=== PATIENT | female | born 1965 | race Caucasian/White ===

== ENCOUNTER → 2016-07-24 | Outpatient (REF) | payer OTHER ==
[~2016-07-24] MED LIST: /ESOM40CA; /FENO14TA PO; /MOXI40TA; /VERA40TA; ACET65TA; ACTO45TA; ADV500INH INH; ADVAIR; ALBUTEROL INHALER INH; AMIT25TA10 PO; APIDINJ2 SC; ASPI325T PO; ATEN25TA; ATEN50TA2 PO; CLAR10CA3 PO; CLAR5CHW; CLARITAN PO; CLOP75TA2 PO; CYANCRY6 PO; DRIS1CAP PO; ECOT325T5; FLUTISP; FURO40TA2; FURO40TA2 PO; GLUC850T; INSULANT; INSULIN 70/30; INSULIN REGULAR SC; ISOS30BRAN; LACH12LO EXT; LANTINJ4 SC; LEVA12INH INH; LIDO5DIS; LIPI80TA PO; LORA10TA2 PO; LOVA1CAP16 PO; LYRI150C PO; META800T82 PO; METF850T PO; MONT10TA2 PO; MUCI600T34 PO; NIASPAN PO; NICO21DI4; NITR0.4D SL; NITR0.4S; PANT40TA2 PO; PARO25TAB; PLAV75TA2; PRED10TA2; PREG100CA; PRIL40CA PO; PROV90AE; SING10TA31 PO; SING5CHW PO; SPIRIVA INH; SUCR1SUS PO; TRIC145T19; VICO5TAB; VITA500046 PO; VOLT1GEL2 TD; VYTO10TA5; XOPE1.252; ZANT150T; ZETI10TA21 PO; [UNRECOGNIZED DRUG - CODE] PO; niaspan PO
[2016-07-24 13:44] LABS: BASO % 0.4 % (0.0-1.0); EOS # 0.2 K/mm3 (0.0-0.50); EOS % 1.9 % (0.0-3.0); LARGE UNSTAINED CELL # 0.3 K/mm3 (0.0-0.4); LYMPH # 2.8 K/mm3 (1.5-4.5); LYMPH % 32.7 % (24.0-44.0); MEAN CORPUSCULAR HEMOGLOBIN 28.9 pg (27.0-33.0); MEAN CORPUSCULAR HGB CONC 32.5 g/dl (32.0-36.5); MEAN CORPUSCULAR VOLUME 88.8 fl (80.0-96.0); MONO # 0.5 K/mm3 (0.0-0.8); MONO % 6.3 % (0.0-5.0); NEUTROPHILS # 4.8 K/mm3 (1.8-7.7); NEUTROPHILS % 55.7 % (36.0-66.0); PLATELET COUNT, AUTOMATED 349 k/mm3 (150-450); RED CELL DISTRIBUTION WIDTH 12.7 % (11.5-14.5); WHITE BLOOD COUNT 8.6 K/mm3 (4.0-10.0)
[2016-07-24 14:10] LABS: ALBUMIN 3.3 GM/DL (3.2-5.2); ALBUMIN/GLOBULIN RATIO 0.85 (1.00-1.93); ALKALINE PHOSPHATASE 92 U/L (45-117); ALT/SGPT 25 U/L (12-78); ANION GAP 7 MEQ/L (8-16); AST/SGOT 16 U/L (15-37); BILIRUBIN,TOTAL 0.2 MG/DL (0.2-1.0); BLOOD UREA NITROGEN 13 MG/DL (7-18); CARBON DIOXIDE LEVEL 31 MEQ/L (21-32); CHLORIDE LEVEL 99 MEQ/L (98-107); CHOLESTEROL LEVEL 252 MG/DL (<200); CREATININE FOR GFR 0.71 MG/DL (0.55-1.02); FERRITIN 13 NG/ML (8-252); FREE T4 1.01 NG/DL (0.76-1.46); GLOMERULAR FILTRATION RATE > 60.0 (>51); GLUCOSE, FASTING 180 MG/DL (70-105); MAGNESIUM LEVEL 1.9 MG/DL (1.8-2.4); PERCENT SATURATION 13.7 % (13.2-37.4); POTASSIUM SERUM 4.2 MEQ/L (3.5-5.1); SODIUM LEVEL 137 MEQ/L (136-145); TOTAL IRON BINDING CAPACITY 467 UG/DL (250-450); TOTAL PROTEIN 7.2 GM/DL (6.4-8.2); TRIGLYCERIDES LEVEL 248 MG/DL (<150)
[2016-07-24 14:20] LABS: VITAMIN B12 LEVEL 1219 PG/ML (247-911)
== END ==
LOC: M SFHCPLAZ 11:05
PROVIDERS: ATTEND Family Medicine
DX: E53.8 Deficiency of other specified B group vitamins (principal); E78.5 Hyperlipidemia, unspecified

== ENCOUNTER → 2016-11-17 | Outpatient (CLI) | payer OTHER ==
--- NOTE | 2016-11-17 16:02 | REPMRS ---
Patient History The patient states she had a clinical breast exam in 11/29 Family history of prostate cancer in brother at age 50 or over. Digital Woman Screen Mammo: November 17, 2016 - Exam #: [id number] Bilateral CC and MLO view(s) were taken. Technologist: Karolina Griffin, Technologist Prior study comparison: March 15, 2015, digital woman screen mammo performed at [facility] to [facility]. December 24, 2013, digital woman screen mammo performed at [facility] to [facility]. FINDINGS: There are scattered fibroglandular densities. There has been no change in the appearance of the mammogram from the prior studies. There is a mild amount of residual fibroglandular tissue which is fairly symmetric. There is no interval development of dominant mass, architectural distortion, or clustered microcalcification suggestive of malignancy. ASSESSMENT: BI-RADS/ACR category 1 mammogram. Negative. Recommendation Routine screening mammogram in 1 year (for women over age 40). This mammogram was interpreted with the aid of an FDA-approved computer-aided dectection system. Electronically Signed By: Juan Wolf MD 11/17/16 [id number]
== END ==
LOC: M WHC 14:38
PROVIDERS: ATTEND Nurse Practitioner Family
DX: Z12.31 Encounter for screening mammogram for malignant neoplasm of breast (principal)

== ENCOUNTER → 2016-11-17 | Outpatient (REF) | payer OTHER | LOC: M SFHCWAGY 14:36 | PROVIDERS: ATTEND Nurse Practitioner Family | DX: Z12.12 Encounter for screening for malignant neoplasm of rectum (principal) ==

== ENCOUNTER → 2016-12-15 | Outpatient (REF) | payer OTHER ==
[2016-12-15 13:14] LABS: BASO % 0.6 % (0.0-1.0); EOS # 0.2 K/mm3 (0.0-0.50); EOS % 2.1 % (0.0-3.0); LARGE UNSTAINED CELL # 0.1 K/mm3 (0.0-0.4); LARGE UNSTAINED CELL % 1.1 % (0.0-4.0); LYMPH # 3.7 K/mm3 (1.5-4.5); LYMPH % 39.7 % (24.0-44.0); MEAN CORPUSCULAR HEMOGLOBIN 29.7 pg (27.0-33.0); MEAN CORPUSCULAR VOLUME 89.8 fl (80.0-96.0); MONO # 0.4 K/mm3 (0.0-0.8); MONO % 4.4 % (0.0-5.0); NEUTROPHILS # 4.7 K/mm3 (1.8-7.7); PLATELET COUNT, AUTOMATED 303 k/mm3 (150-450); RED CELL DISTRIBUTION WIDTH 13.6 % (11.5-14.5)
[2016-12-15 13:17] LABS: THYROID PEROXIDASE ANTIBODY < 28.0 U/ML (<60.0)
[2016-12-15 13:24] LABS: CHOLESTEROL LEVEL 111 MG/DL (<200); FERRITIN 27 NG/ML (8-252); FREE T4 1.09 NG/DL (0.76-1.46); PERCENT SATURATION 18.4 % (13.2-37.4); TOTAL IRON BINDING CAPACITY 414 UG/DL (250-450); TRIGLYCERIDES LEVEL 158 MG/DL (<150)
[2016-12-15 14:56] LABS: MICROSCOPIC INDICATED? MAN YES (NO)
[2016-12-15 15:17] LABS: RBC, URINE NONE SEEN /hpf (0-3); SQUAMOUS EPITHELIAL CELL URINE MOD AMOUNT /hpf (SMALL AMT)
[2016-12-15 15:18] LABS: BACTERIA, URINE MOD AMOUNT; CALCIUM OXALATE CRYSTALS,URINE MOD AMOUNT /hpf; MICROSCOPIC EXAM PERFORMED
[2016-12-15 22:13] LABS: HYALINE CAST, URINE NONE SEEN /lpf (0-1)
== END ==
LOC: M SFHCPLAZ 10:04
PROVIDERS: ATTEND Family Medicine
DX: D50.9 Iron deficiency anemia, unspecified (principal); E03.9 Hypothyroidism, unspecified; E11.8 Type 2 diabetes mellitus with unspecified complications

== ENCOUNTER → 2017-01-30 | Outpatient (CLI) | payer OTHER ==
--- NOTE | 2017-01-30 23:55 | ECWPNPC ---
PATIENT NAME: LEOLA PAN : 1965 GENDER: FEMALE VISIT DATE: 01/30/2017 DISCHARGE DATE: 01/30/17 1300 VISIT LOCKED DATE TIME: PHYSICIAN: ESTEFANY SORENSON PHYSICIAN PAGER NO: [phone] RESOURCE: ESTEFANY SORENSON REASON FOR APPOINTMENT 1. LUMBAR HISTORY OF PRESENT ILLNESS NEW PATIENT CONSULT: 51 Y/O FEMALE REFERRED BY JESSICA JACKSON,[facility] FOR EVALUATION OF CHRONIC LBP.THIS BEGAN TWO YEARS AGO WITH NO PARTICULAR INJURY.DESCRIBES PAIN CONSTANT ACHING AND SHARP PAIN.PAIN IS AGGREVATED BY WALKING,SITTING OR STANDING.PAIN IS RELIEVED SOMEWHAT WITH LYING DOWN.RATING PAIN VAS 8/10.PAIN IS LOCATED ACROSS LOW BACK WITH RADIATION INTO LEGS.SUFFERS WITH DIABETIC NEUROPATHY AND HAS MULTIPLE COMORBID CONDITIONS.DENIES RECENT FEVER,ILLNESS OR SUDDEN WEIGHT LOSS.DENIES BOWEL OR BLADDER INCONTINENCE.REPORTING FREQUENT EPISODES OF DIARHEA PAST FEW MONTHS. WHEN DID YOUR PAIN FIRST START? . BRIEFLY DESCRIBE HOW YOUR PAIN STARTED? . HOW DOES YOUR PAIN CHANGE WITH TIME? . DOES YOUR PAIN AWAKEN YOU FROM SLEEP? . HOW MANY HOURS OF SLEEP DO YOU NORMALLY GET? . ANY DIAGNOSTIC TESTING? . FACILITY WHERE TESTS WERE DONE? ____. PAIN TREATMENT TREATMENT YES CANCER HAVE YOU EVER HAD ANY TYPE OF CANCER?NO NO. PAIN SCREENING: PATIENT HAS A COMPLAINT OF ACUTE OR CHRONIC PAIN :YES FALL RISK SCREENING: SCREENING :NO FALLS IN THE PAST YEAR TAVARES INVENTORY: QUESTIONNAIRE ASSESSEDTBD SCORE VALUE CALCULATED TBD CURRENT MEDICATIONS TAKING CLOPIDOGREL BISULFATE 75 MG TABLET 1 TABLET BY MOUTH ONCE A DAY TAKING ASPIRIN 325 MG TABLET 1 TABLET BY MOUTH ONCE A DAY TAKING NITROGLYCERIN 0.4 MG TABLET SUBLINGUAL 1 TABLET UNDER THE TONGUE SUBLINGUAL TAKE 1 EVERY 5 MINUTES X3 THEN IF NO RELIEF GO TO THE ER TAKING FLONASE 50 MCG/ACT SUSPENSION 2 SPRAY IN EACH NOSTRIL NASALLY EVERY AM TAKING ATENOLOL 25 MG TABLET 1/2 TABLET ORALLY AT BEDTIME TAKING FUROSEMIDE 40 MG TABLET 1 TABLET ORALLY TWICE A DAY TAKING ALBUTEROL SULFATE HFA 108 (90 BASE) MCG/ACT AEROSOL SOLUTION 2 PUFFS INHALATION FOUR TIMES A DAY TAKING XOPENEX 1.25 MG/3ML NEBULIZATION SOLUTION 3 ML INHALATION QID PRN TAKING MONTELUKAST SODIUM 10 MG TABLET 1 TABLET BY MOUTH AT BEDTIME TAKING MUCINEX 600 MG TABLET EXTENDED RELEASE 12 HOUR 1 TABLET NEEDED ORALLY EVERY 12 HRS TAKING STRIVERDI RESPIMAT 2.5 MCG/ACT AEROSOL SOLUTION 2 PUFFS INHALATION ONCE A DAY TAKING PREGABALIN 150 MG CAPSULE 1 CAPSULE ORALLY MDD:2 TWICE A DAY TAKING LEVOTHYROXINE SODIUM 50 MCG TABLET 1 TABLET ON AN EMPTY STOMACH IN THE MORNING ORALLY ONCE A DAY TAKING NOVOLOG 100 UNIT/ML SOLUTION 1 INJECTION UP TO 4 TIMES PER DAY SUBCUTANEOUS PER SS MDD 20 UNITS TAKING TOUJEO SOLOSTAR 300 UNIT/ML SOLUTION PEN-INJECTOR DIRECTED 80 UNITS SC IN AM, 60 SC IN PMSUBCUTANEOUS ONCE DAILY TAKING METFORMIN HCL 850 MG TABLET 1 TABLET BY MOUTH THREE TIMES A DAY TAKING TANZEUM 30 MG PEN-INJECTOR DIRECTED SUBCUTANEOUS WEEKLY TAKING SUCRALFATE 1 GM TABLET 1 TABLET BY MOUTH 4 TIMES A DAY TAKING NYSTATIN-TRIAMCINOLONE 078891-9.1 UNIT/GM-% CREAM 1 APPLICATION TO AFFECTED AREA EXTERNALLY GROIN, LABIA, UNDER ABD TWICE A DAY PRN REDNESS, RASH, ITCHING, IRRITATION TAKING SYRINGE (DISPOSABLE) 1 ML SYRINGE FOR INSULIN WITH NEEDLE MISCELLANEOUS USE WITH LANTUS AND NOVOLOG SUBCUTANEOUSLY DIRECTED PER INSULIN ORDERS - MDD 6 TAKING ALCOHOL PREP SWABS - - - DX 250.02 FOUR TIMES A DAY TAKING LANCETS - MISCELLANEOUS 1 LANCET SUBCUTANEOUSLY TID - DX E11.9 TAKING PEN NEEDLES 3/16" 31G X 5 MM MISCELLANEOUS 1 SUBCUTANEOUSLY BID WITH TOUJEO - DX E11.9 TAKING BLOOD GLUCOSE TEST - STRIP ONE TOUCH VERIO TEST STRIPS IN VITRO FOUR TIMES DAILY DX E11.9 TAKING VITAMIN D (CHOLECALCIFEROL) 5000 UNIT TABLET 1 TAB ORALLY ONCE A DAY TAKING NEBULIZER - DEVICE DIRECTED WITH MEDS J44.9 _, NOTES: LINCARE TAKING ACETAMINOPHEN 500 MG CAPSULE 2 CAPSULES NEEDED ORALLY EVERY 8 HRS TAKING EZETIMIBE 10 MG TABLET 1 TABLET BY MOUTH ONCE A DAY TAKING NIASPAN 500 MG TABLET EXTENDED RELEASE 2 TABLETS AT BEDTIME BY MOUTH DAILY AT BEDTIME TAKING LOVAZA 1 GM CAPSULE 2 CAPSULES BY MOUTH TWICE A DAY TAKING LANSOPRAZOLE 30 MG CAPSULE DELAYED RELEASE 1 CAPSULE ORALLY ONCE A DAY TAKING SERTRALINE HCL 100 MG TABLET TAKE TWO TABLETS BY MOUTH EVERY DAY TAKING ARNUITY ELLIPTA 200 MCG/ACT AEROSOL POWDER BREATH ACTIVATED 1 PUFF INHALATION ONCE A DAY TAKING LOFIBRA 200 MG CAPSULE 1 CAPSULE WITH A MEAL ORALLY ONCE A DAY TAKING ROSUVASTATIN CALCIUM 40 MG TABLET 1 TABLET ORALLY ONCE A DAY TAKING LORATADINE 10 MG TABLET TAKE ONE TABLET BY MOUTH EVERY DAY TAKING CYANOCOBALAMIN 1000 MCG TABLET 1 TABLET BY MOUTH ONCE A DAY NOT-TAKING STRIVERDI RESPIMAT 2.5 MCG/ACT AEROSOL SOLUTION 2 PUFFS INHALATION ONCE A DAY NOT-TAKING ALBUTEROL SULFATE (5 MG/ML) 0.5% NEBULIZATION SOLUTION 0.5 ML INHALATION FOUR TIMES DAILY NEEDED NOT-TAKING D-5000 MAXIMUM STRENGTH 5000 UNIT CAPSULE TAKE ONE CAPSULE BY MOUTH EVERY DAY NOT-TAKING ASPIRIN EC 325 MG TABLET DELAYED RELEASE TAKE ONE TABLET BY MOUTH EVERY DAY NOT-TAKING LYRICA 150 MG CAPSULE 1 CAP (ISTOP REFERENCE #: [id number] ) ORALLY TWICE DAILY - MDD = 2 CAPS NOT-TAKING LEVOTHYROXINE SODIUM 25 MCG TABLET 1 TABLET ON AN EMPTY STOMACH IN THE MORNING ORALLY ONCE A DAY MEDICATION LIST REVIEWED AND RECONCILED WITH THE PATIENT PAST MEDICAL HISTORY CAD STATUS POST LAD STENT 2004 /ISCHEMIC CARDIOMYOPATHY/CHF CHRONIC SECONDARY TO SYSTOLIC DYSFUNCTION, LVEF IS 40%-05/2010 DPST-NORMAL GUSMAN/ TTE-GRADE 1 DIASTOLIC DYSFUNCTION-[facility]/ LOW RISK RST, LVEF 55%- NORMAL MARIANNE- T2DM, INSULIN REQUIRING, WITH PERIPHERAL B LE NEUROPATHY PARTIAL COMPLEX SEIZURE DISORDER-NORMAL EEG NOVEMBER 30, 2010-[facility]-DR. PLASENCIA NICOTINE ADDICTION COPD/ASTHMA, MODERATE PERSISTENT-FEBRUARY 2011 FEV1 1.4 L (49% NORMAL)/RATIO 87% HYPERLIPIDEMIA 2B MIGRAINE HEADACHES, COMMON TYPE ALLERGIC RHINITIS DEPRESSION CHRONIC HOARSENESS B12 DEFICIENCY OBESITY CERVICAL DJD LEFT SHOULDER AC JOINT ARTHRITIS, SUPRASPINATUS TENDINITIS BY MRI IN SEPTEMBER 2010 LUMBAR DJD-11/2016 MRI C L3-5 DIFFUSE BULGES C MINIMAL TS COMPRESSION PERIMENOPAUSE 25% R ICA STENOSIS, SEVERE STENOSIS R VERTEBRAL ARTERY BY 10/2012 MRA BRAIN//<50% B ICA STENOSIS BY 09/2016 US B CHRONIC PERIVENTRICULAR, SUBCORTICAL T2 HYPERINTENSITIES-STABLE BY 10/2012 MRI-2007 NOT FELT TO BE [address] MICHAEL RODRIGUEZ (MS SPECIALIST-[facility])-09/2007 NORMAL ANGELICA, B TIBIAL NERVE STIMULATION, LP - FOR OCB 6 MM SERRATED ADENOMA BY 09/2014 COLONOSCOPY-REINDL GERD-09/2014 NORMAL EGD-REINDL L HIP/KNEE MILD DJD BY 07/2016 XRAY HIGH CHOLESTEROL GASTRIC ULCERS ALLERGIES NAPROSYN: DIFFICULTY BREATHING: ALLERGY SURGICAL HISTORY RIGHT CARPEL TUNNEL REPAIR 10/05/2009 LAPRSCOPIC CHOLECYSTECTOMY-BRIDGETTE 08/2007 L ULNAR NERVE DECOMPRESSION, ELBOW-URI 03/2011 EYES LIFT 11/2012 TONSILLECTOMY 1974 FAMILY HISTORY FATHER: 57 YRS, AMI MOTHER: 68 YRS, PNEUMONIA, STROKE SIBLINGS: 42 YRS, BROTHER WITH AMI. ONE SISTER, LIVING, LUNG CANCER AGE 67. REST SIBLINGS, NO KNOWN MEDICAL PROBLEMS SON(S): ALIVE 24,22,21 YRS DAUGHTER(S): ALIVE 25 YRS 3 BROTHER(S) , 1 SISTER(S) . 3 SON(S) , 1 DAUGHTER(S) - HEALTHY. DENIES BREAST, COLON OR OVARIAN CANCERS. HAS TWO GRANDDAUGHTERS. SOCIAL HISTORY GENERAL: TOBACCO USE ARE YOU A:CURRENT SMOKER HOW MANY CIGARETTES A DAY DO YOU SMOKE?11-20 PATIENT COUNSELED ON THE DANGERS OF TOBACCO USE AND URGED TO QUIT:01/30/2017 ARE YOU INTERESTED IN QUITTING?THINKING ABOUT QUITTING PREVIOUS QUIT ATTEMPTS?YES, WITHIN THE LAST 6 MONTHS. COUNSELED THE PATIENT ON SMOKING CESSATION, EDUCATION [id number] RECREATIONAL DRUG USE DRUG USE?NO PATIENT DENIES ABUSE OR MISSUSED OF ANY MEDICATION YES PATIENT DENIES USE OF ANY ILLEGAL SUBSTANCE INCLUDING MARIJUANA OR COCAINE YES CAFFEINE CAFFEINE USE?YES HOW OFTEN AND HOW MUCH? 6-7 CUPS COFFEE/DAY AND SODA MUSLIM [id number] SABIANISM LANGUAGE LANGUAGES SPOKEN:LAO LEARNING BARRIERS / SPECIAL NEEDS BARRIERS TO LEARNING?NO HEARING IMPAIRED?NO VISION IMPAIRED?YES :CORRECTIVE LENSES COGNITIVELY IMPAIRED?NO READINESS TO LEARN?YES LEARNING PREFERENCES?NO LEARNING CAPABILITIES PRESENT?YES EMOTIONAL BARRIERS?NO SPECIAL DEVICES?YES :WALKER CONCRETE FOREMAN NEEDED?NO PAIN CLINIC PFS, CLERGY, PUBLIC HEALTH REFERRALS PFS REFERRAL NEEDED?NO CLERGY REFERRAL NEEDED?NO PUBLIC HEALTH REFERRAL NEEDED?NO WAS THE PROVIDER NOTIFIED OF ANY PERTINENT INFO?NO HAS THE PATIENT BEEN EDUCATED REGARDING HIS/HER PLAN OF CARE?YES HAS THE PATIENT BEEN EDUCATED REGARDING PAIN, THE RISK FOR PAIN, THE IMPORTANCE OF EFFECTIVE PAIN MANAGEMENT, AND THE PAIN ASSESSMENT PROCESS?YES PATIENT: ____. ADVANCE DIRECTIVES HEALTH CARE PROXY?YES NAME OF HCP LONG SCOUGAL CONTACT # FOR HCP PHONE # [phone] DO YOU HAVE A COPY WITH YOU?NO DO YOU HAVE A DNR?NO WOULD YOU LIKE MORE INFORMATION?NO LIVING WILL?NO WOULD YOU LIKE MORE INFORMATION?NO POWER OF OFFICE SWEEPER?NO WOULD YOU LIKE MORE INFORMATION?NO PT STATES THAT SHE SMOKES 10 - 15 CIGARETTES DAILY. HOSPITALIZATION/MAJOR DIAGNOSTIC PROCEDURE SYNCOPE PROBABLY 2 ORTHOSTATIC HYPOTENSION 2 RISING OUT OF BED-NEGATIVE EEG, MRI/MRA BRAIN, MRA CAROTIDS C R 25% STENOSIS, NO MEDICATION CHANGES MADE 10/2011 SYNCOPE-NEGATIVE TELEMETRY, EKG/ENZYMES, ATENOLOL DECREASED 12.5 BID TO QD, ? COUGH SYNCOPE 2 AR THEREFORE FLONASE ADDED 03/31-04/03/13 REVIEW OF SYSTEMS REVIEWED BY: PROVIDER: ESTEFANY KWONG . CONSTITUTIONAL: ANY CHANGE IN YOUR MEDICAL CONDITION? NO . CHILLS NO . FEVER NO . INFECTION: DO YOU HAVE NEW INFECTIONS? NO . DO YOU HAVE HISTORY OF MRSA? NO . MUSCULOSKELETAL: ANY NEW PATTERNS OF PAIN OR NUMBNESS? NO . SYTEMIC LUPUS NO . GASTROENTEROLOGY: ANY NEW CHANGE IN BOWEL CONTROL? YES, DIARRHEA . BARRETTS ESOPHAGUS NO . CIRRHOSIS NO . HEPATITIS NO . LIVER FAILURE NO . ACID REFLUX YES . UNEXPLAINED WEIGHT LOSS NO . GENITOURINARY: ANY NEW CHANGE IN BLADDER CONTROL? NO . IS THERE A CHANCE YOU COULD BE ? NO . HEMATOLOGY/LYMPH: DO YOU TAKE ANY BLOOD THINNERS? (FOR EXAMPLE- COUMADIN, PLAVIX, AGGRENOX, PLATEL, PRADAXA, OR XARELTO) YES, PLAVIX . WHEN WAS YOUR LAST DOSE? DATE:01/29/17 TIME: 0900 . LOW PLATELET COUNT NO . SICKLE CELL DISEASE NO . VON WILLIEBRANDS NO . FACTOR V LEIDEN NO . THALLASEMIA NO . ANEMIA YES . EASY BRUISING NO . NEUROLOGY: HAVE YOU FALLEN IN THE PAST 6 MONTHS? YES . ANY NEW EXTREMITY NUMBNESS OR WEAKNESS? NO . HEAD INJURY NO . DEMENTIA NO . CEREBRAL PALSY NO . MULTIPLE SCLEROSIS NO . DIZZINESS YES . HEADACHE NO . STROKES YES, MINI STROKE IN THE PAST . VERTIGO NO . CARDIOLOGY: DO YOU HAVE A PACEMAKER OR DEFIBRILLATOR? NO . ANGINA YES . HEART ATTACK YES . HEART SURGERY YES, STENTS PLACED . CONGESTIVE HEART FAILURE/FLUID OVERLOAD YES . CHEST PAIN NO . HIGH BLOOD PRESSURE NO . IRREGULAR HEART BEAT NO . RESPIRATORY: HAVE YOU BEEN SICK IN THE PAST WEEK? NO . FEVER NO . FLU LIKE SYMPTOMS? NO . CPAP NO . BYPAP NO . ASTHMA YES . EMPHYSEMA NO . CHRONIC LUNG DISEASES YES . SHORTNESS OF BREATH ON EXERTION YES . DO YOU USE ANY TYPE OF TOBACCO (SMOKE, SMOKELESS, CHEW)? YES . COUGH NO . SNORING NO . INTEGUMENTARY: DO YOU HAVE ANY RASHES OR OPEN SORES? NO . ALLERGIC/IMMUNO: ARE YOU ALLERGIC TO SHELLFISH OR IV DYE? NO . ANY NEW ALLERGIES? NO . PSYCHIATRIC: DO YOU HAVE THOUGHTS OF HURTING YOURSELF OR SOMEONE ELSE? NO . ARE YOU ABUSED, NEGLECTED, OR IN AN UNSAFE ENVIRONMENT? NO . ENDOCRINOLOGY: ARE YOU DIABETIC? YES . THYROID DISORDER YES . OTHER: DO YOU NEED ANY PRESCRIPTIONS? NO . IF YES, PLEASE LIST: ____ . ANY NEW PROBLEMS WITH YOUR MEDICATIONS? NO . WHEN DID YOU LAST EAT? ____ . WHEN DID YOU LAST DRINK? ____ . WHAT DID YOU LAST DRINK? ____ . NAME OF PERSON DRIVING YOU HOME? ____ . DO YOU HAVE ANY OTHER QUESTIONS OR CONCERNS NO . VITAL SIGNS WT 169.4 LBS, HT 60 1/4, BMI 32.81 INDEX, BP 93/58 MM HG, HR 73 /MIN, RR 18 /MIN, TEMP 97.4 F, OXYGEN SAT % 90% RA, NA INITIALS TL 1134, REVIEWED BY: STELLA. EXAMINATION GENERAL EXAMINATION: GENERAL APPEARANCE:COMFORTABLE, COOPERATIVE . PSYCHALERT , ORIENTED X 3 . HEENT:NORMOCEPHALIC,PERRLA. NECK:TRACHEA MIDLINE. NO CERVICAL OR SUPRACLAVICULAR LYMPHADENOPATHY NOTED. LUNGS:LUNG DE [place] ARE CLEAR TO AUSCULTATION BILATERALLY. GOOD MOVEMENT OF AIR. HEART:S1, S2 IN A REGULAR RATE AND RHYTHM. NO SIGNIFICANT MURMURS, RUBS OR GALLOPS NOTED. ABDOMEN:NORMAL WITHOUT TENDERNESS, MASSES, OR MEGALY. LUMBAR SPINE/LOWER BACK: INSPECTION:NORMAL CURVATURE OF SPINE. PALPATION:SEVERE, SI JOINT TENDERNESS-BILAT. MODERATE, PARASPINAL TENDERNESS AND VERTEBRAL SPINE TENDERNESS. MOTOR SYSTEM:5/5 BLE. SENSORY EXAM:NORMAL BILATERAL LE. REFLEXES:2/4 AND SYMMETRIC BLE. DIAGNOSTIC DATA-MRI L/S [id number]-[id number]. ASSESSMENTS LUMBAR FACET ARTHROPATHY - M12.88 (PRIMARY) PAIN OF BOTH SACROILIAC JOINTS - M53.3 DIABETIC PERIPHERAL NEUROPATHY - E11.42 TREATMENT LUMBAR FACET ARTHROPATHY NOTES: PATIENT WAS ADVISED TO START A WALKING PROGRAM TO STRENGTHEN LUMBAR PARASPINAL MUSCLES AND IMPROVE MOBILITY. THEY WERE ADVISED THAT THIS WILL IMPROVE WEIGHT LOSS AND ALSO DEPRESSION/FIBROMYALGIA SYMPTOMS. ADVISED TO WALK 10 MINUTES EVERY OTHER DAY ON A FLAT SURFACE. EMPHASIZED THE IMPORTANCE OF DOING THIS CONSISTANTLY AND NOT SPORATICALLY TO AVOID INJURY. STRONG ADVISED NOT TO DO MORE THAN 10 MINUTES EVERY OTHER DSY FOR THE FIRST 4 WEEKS., #128 - SCREENING BMI AND F/U PLAN IN : BMI ABOVE NORMAL TODAY. DISCUSSED WITH PATIENT NUTRITIONAL FOOD CHOICES TO ASSIST WITH WEIGHT LOSS. RECCOMMENDED REDUCING SALT, SUGAR, SODA INTAKE. RECOMMEND INCREASE ACTIVITY TO INCLUDE WALKING ON A REGULAR BASIS. PROFESSIONAL NUTRITIONAL NUTRITIONAL GUIDANCE WAS OFFERED AND WAS DECLINED. BILAT.SIJ INJECTION-SEND STOP PLAVIX FORM TO . PREVENTIVE MEDICINE PAIN CLINIC TEACHING: PROCEDURE TEACHING PRE-PROCEDURE TEACHING DONE AND PATIENT VERBALIZES UNDERSTANDING. PATIENT ALSO VERBALIZES UNDERSTANDING THAT WE ARE WAITING FOR PERMISSION TO STOP PLAVIX FROM . TEACHING AND INFORMORMATION SHEETS GIVEN FOR SACROILIAC JOINT INJECTIONS.. PROCEDURE CODES FA211 ESTABILISHED PATIENT [facility] CHARGE DISPOSITION & COMMUNICATION FOLLOW UP 2WK POST-KORIN WILL SCHEDULE SIJ AFTER RECIEVING STOP PLAVIX (REASON: BILAT. SIJ IVANNA WILL SEND STOP PLAVIX) ELECTRONICALLY SIGNED BY ELENITA BEY ON 01/30/2017 AT 01:15 PM EDT DISCLAIMER : THIS IS A VISIT SUMMARY EXTRACTED FROM THE [facility] [employer] CHART. IT IS NOT A COPY OF THE [employer] PROGRESS NOTE. EDIND
== END ==
LOC: M PAIN 11:20
PROVIDERS: ATTEND Nurse Practitioner Family
DX: G89.29 Other chronic pain (principal); M12.88 Other specific arthropathies, not elsewhere classified, other specified site; M53.3 Sacrococcygeal disorders, not elsewhere classified; E11.42 Type 2 diabetes mellitus with diabetic polyneuropathy; F32.9 Major depressive disorder, single episode, unspecified; E78.5 Hyperlipidemia, unspecified; J44.9 Chronic obstructive pulmonary disease, unspecified; F17.210 Nicotine dependence, cigarettes, uncomplicated; I25.10 Atherosclerotic heart disease of native coronary artery without angina pectoris; E53.8 Deficiency of other specified B group vitamins; E03.9 Hypothyroidism, unspecified; D50.9 Iron deficiency anemia, unspecified; Z88.8 Allergy status to other drugs, medicaments and biological substances; Z79.01 Long term (current) use of anticoagulants; Z79.82 Long term (current) use of aspirin; Z79.4 Long term (current) use of insulin; Z79.899 Other long term (current) drug therapy

== ENCOUNTER → 2017-03-13 | Outpatient (REF) | payer OTHER | LOC: M LAB REF 12:33 | PROVIDERS: ATTEND Podiatrist Foot & Ankle Surgery | DX: L03.115 Cellulitis of right lower limb (principal) ==

== ENCOUNTER 2017-08-25 17:42 | Inpatient (IN) | payer OTHER ==
[2017-08-25] MEDS: NS 1,000 ML IV (17:53)
[2017-08-25 18:14] LABS: BASO % 0.3 % (0.0-1.0); EOS # 0.2 10^3/uL (0.0-0.50); EOS % 1.5 % (0.0-3.0); HEMOGLOBIN 11.6 g/dl (12.0-16.0); IMMATURE GRANULOCYTE % 0.3 % (0-3.0); LYMPH # 4.1 10^3/uL (1.5-4.5); LYMPH % 33.4 % (24.0-44.0); MEAN CORPUSCULAR HEMOGLOBIN 27.8 pg (27.0-33.0); MEAN CORPUSCULAR HGB CONC 32.2 g/dl (32.0-36.5); MEAN CORPUSCULAR VOLUME 86.3 fl (80.0-96.0); MONO # 0.7 10^3/uL (0.0-0.8); MONO % 5.9 % (0.0-5.0); NEUTROPHILS # 7.2 10^3/uL (1.8-7.7); NEUTROPHILS % 58.6 % (36.0-66.0); PLATELET COUNT, AUTOMATED 295 10^3/uL (150-450); RED BLOOD COUNT 4.17 10^6/uL (4.00-5.40); RED CELL DISTRIBUTION WIDTH 13.9 % (11.5-14.5); WHITE BLOOD COUNT 12.3 10^3/uL (4.0-10.0)
[2017-08-25 18:27] LABS: INR 0.82; PROTHROMBIN TIME 11.3 SECONDS (12.4-14.5)
[2017-08-25 19:00] LABS: ALBUMIN 2.7 GM/DL (3.2-5.2); ALBUMIN/GLOBULIN RATIO 0.69 (1.00-1.93); ALKALINE PHOSPHATASE 85 U/L (45-117); ALT/SGPT 18 U/L (12-78); ANION GAP 6 MEQ/L (8-16); AST/SGOT 23 U/L (7-37); BILIRUBIN,DIRECT < 0.1 MG/DL (0.0-0.2); BILIRUBIN,TOTAL 0.3 MG/DL (0.2-1.0); BLOOD UREA NITROGEN 15 MG/DL (7-18); CALCIUM LEVEL 8.5 MG/DL (8.5-10.1); CARBON DIOXIDE LEVEL 30 MEQ/L (21-32); CHLORIDE LEVEL 102 MEQ/L (98-107); CPK CREATINE PHOSPHOKINASE 107 U/L (26-192); CREATININE FOR GFR 0.83 MG/DL (0.55-1.30); GLOMERULAR FILTRATION RATE > 60.0 (>51); GLUCOSE, FASTING 122 MG/DL (70-100); LIPASE 205 U/L (73-393); POTASSIUM SERUM 4.7 MEQ/L (3.5-5.1); SODIUM LEVEL 138 MEQ/L (136-145); TOTAL PROTEIN 6.6 GM/DL (6.4-8.2)
[2017-08-25 19:01] LABS: CK-MB VALUE MASS 1.8 NG/ML (0.0-3.6); MB/CK RELATIVE INDEX 1.68 (< OR =4)
[2017-08-25 20:05] LABS: KETONE, URINE AUTO RFX NEGATIVE (NEGATIVE); LEUKOCYTE ESTERASE UR AUTO RFX NEGATIVE (NEGATIVE); MUCUS, URINE RFX SMALL (NEGATIVE); NITRITE, URINE AUTO RFX NEGATIVE (NEGATIVE); RBC, URINE AUTO RFX 2 /HPF (0-3); SPECIFIC GRAVITY UR AUTO RFX 1.014 (1.002-1.035); SQUAM EPITHELIAL CELL UR AURFX 11 /HPF (0-6); WBC, URINE AUTO RFX 1 /HPF (0-3)
[2017-08-25 20:47] LABS: CPK CREATINE PHOSPHOKINASE 81 U/L (26-192); TROPONIN I 1.06 NG/ML (< 0.10)
[2017-08-25 20:48] LABS: CK-MB VALUE MASS 2.1 NG/ML (0.0-3.6); MB/CK RELATIVE INDEX 2.59 (< OR =4)
[2017-08-25] MEDS: ENOXAPARIN 100MG/1ML SYRINGE (J1650) SC (21:15)
[2017-08-26] MEDS: NIACIN SR (NIASPAN) 500 MG TAB PO (00:30)
[2017-08-26] MEDS ORDERED: NITROGLYCERIN 0.4 MG SUBL TABLET SL (00:30)
[2017-08-26] MEDS: ATENOLOL 25 MG TAB PO ×2 (00:30→20:08)
[2017-08-26] MEDS ORDERED: DEXTROSE 50% 50 ML SYRINGE IV (00:45)
[2017-08-26] MEDS ORDERED: GLUCOSE 4 GM CHEW TABLET PO (00:45)
[2017-08-26] MEDS ORDERED: GLUCAGON FOR INJ 1 MG VIAL (J1610) SC (00:45)
[2017-08-26 02:33] LABS: CPK CREATINE PHOSPHOKINASE 65 U/L (26-192); TROPONIN I 1.13 NG/ML (< 0.10)
[2017-08-26 02:34] LABS: MB/CK RELATIVE INDEX 3.07 (< OR =4)
[2017-08-26] MEDS: ATORVASTATIN 20 MG TAB PO ×2 (04:01→20:07)
[2017-08-26] MEDS: FENOFIBRATE 145 MG TAB (TRICOR) PO ×2 (04:02→20:08)
[2017-08-26] MEDS: PREGABALIN 75 MG CAP(LYRICA) PO ×3 (04:02→20:07)
[2017-08-26] MEDS: EZETIMIBE 10 MG TAB (ZETIA) PO ×2 (04:02→20:08)
[2017-08-26] MEDS: LEVOTHYROXINE 25MCG TABLET (0.025MG) PO (06:19)
[2017-08-26] MEDS: LEVALBUTEROL 1.25 MG/0.5 ML CONCENTRATE NEB INH ×4 (07:18→20:29)
[2017-08-26] MEDS: TIOTROPIUM INHALER/CAPSULE (SPIRIVA) INH (07:18)
[2017-08-26] MEDS: HumaLOG INSULIN (NovoLOG) PER UNIT SC ×4 (07:30→20:09)
[2017-08-26 08:08] LABS: HEMATOCRIT 35.5 % (36.0-47.0); HEMOGLOBIN 11.4 g/dl (12.0-16.0); MEAN CORPUSCULAR HEMOGLOBIN 28.3 pg (27.0-33.0); MEAN CORPUSCULAR HGB CONC 32.1 g/dl (32.0-36.5); MEAN CORPUSCULAR VOLUME 88.1 fl (80.0-96.0); PLATELET COUNT, AUTOMATED 266 10^3/uL (150-450); RED BLOOD COUNT 4.03 10^6/uL (4.00-5.40); RED CELL DISTRIBUTION WIDTH 14.2 % (11.5-14.5); WHITE BLOOD COUNT 9.4 10^3/uL (4.0-10.0)
[2017-08-26 08:09] LABS: BEDSIDE GLUCOSE 68 MG/DL (70-105)
[2017-08-26 08:38] LABS: ANION GAP 8 MEQ/L (8-16); BLOOD UREA NITROGEN 12 MG/DL (7-18); CALCIUM LEVEL 8.6 MG/DL (8.5-10.1); CARBON DIOXIDE LEVEL 31 MEQ/L (21-32); CHLORIDE LEVEL 104 MEQ/L (98-107); CREATININE FOR GFR 0.52 MG/DL (0.55-1.30); GLOMERULAR FILTRATION RATE > 60.0 (>51); GLUCOSE, FASTING 65 MG/DL (70-100); POTASSIUM SERUM 3.4 MEQ/L (3.5-5.1); SODIUM LEVEL 143 MEQ/L (136-145)
[2017-08-26 08:42] LABS: CPK CREATINE PHOSPHOKINASE 61 U/L (26-192); TROPONIN I 1.11 NG/ML (< 0.10)
[2017-08-26 08:43] LABS: CK-MB VALUE MASS 1.8 NG/ML (0.0-3.6); MB/CK RELATIVE INDEX 2.95 (< OR =4)
[2017-08-26] MEDS: ASPIRIN 325 MG TAB PO (09:13)
[2017-08-26] MEDS: SUCRALFATE 1 GM TAB PO ×4 (09:13→20:07)
[2017-08-26] MEDS: PARoxetine 25 MG CR TAB (PAXIL CR) PO (09:13)
[2017-08-26] MEDS: CYANOCOBALAMIN 500 MCG TAB PO (09:13)
[2017-08-26] MEDS: NS 1,000 ML IV ×2 (09:13→20:07)
[2017-08-26] MEDS: PANTOPRAZOLE 40MG TAB (PROTONIX) PO ×2 (09:14→20:07)
[2017-08-26] MEDS: SERTRALINE 100 MG TAB PO (09:14)
[2017-08-26] MEDS: METAXALONE 800 MG TABLET PO ×2 (09:14→20:07)
[2017-08-26] MEDS: ENOXAPARIN 40 MG/0.4 ML SYRINGE (J1650) SC (09:14)
[2017-08-26] MEDS: CLOPIDOGREL 75 MG TAB PO (09:14)
[2017-08-26] MEDS: FLUTICASONE PROP 0.05% NASAL SPRAY 16 GM (FLONASE) (09:15)
[2017-08-26] MEDS: FUROSEMIDE 80 MG TAB PO (09:17)
[2017-08-26 11:27] LABS: BEDSIDE GLUCOSE 252 MG/DL (70-105)
[2017-08-26 14:32] LABS: CK-MB VALUE MASS 2.5 NG/ML (0.0-3.6); CPK CREATINE PHOSPHOKINASE 70 U/L (26-192); MB/CK RELATIVE INDEX 3.57 (< OR =4); TROPONIN I 0.72 NG/ML (< 0.10)
[2017-08-26 17:06] LABS: BEDSIDE GLUCOSE 187 MG/DL (70-105)
[2017-08-26 19:53] LABS: BEDSIDE GLUCOSE 191 MG/DL (70-105)
[2017-08-26] MEDS: MONTELUKAST 10 MG TAB PO (20:08)
[2017-08-26] MEDS: ACETAMINOPHEN 500 MG TAB PO (22:16)
[2017-08-27] MEDS: LEVALBUTEROL 1.25 MG/0.5 ML CONCENTRATE NEB INH ×3 (00:22→08:10)
[2017-08-27] MEDS: NS 1,000 ML IV ×2 (00:25→06:08)
[2017-08-27 05:12] LABS: HEMATOCRIT 33.7 % (36.0-47.0); HEMOGLOBIN 10.5 g/dl (12.0-16.0); MEAN CORPUSCULAR HEMOGLOBIN 27.4 pg (27.0-33.0); MEAN CORPUSCULAR HGB CONC 31.2 g/dl (32.0-36.5); PLATELET COUNT, AUTOMATED 271 10^3/uL (150-450); RED BLOOD COUNT 3.83 10^6/uL (4.00-5.40); RED CELL DISTRIBUTION WIDTH 14.3 % (11.5-14.5); WHITE BLOOD COUNT 8.9 10^3/uL (4.0-10.0)
[2017-08-27 05:34] LABS: ANION GAP 7 MEQ/L (8-16); BLOOD UREA NITROGEN 16 MG/DL (7-18); CALCIUM LEVEL 8.4 MG/DL (8.5-10.1); CARBON DIOXIDE LEVEL 28 MEQ/L (21-32); CHLORIDE LEVEL 104 MEQ/L (98-107); GLOMERULAR FILTRATION RATE > 60.0 (>51); GLUCOSE, FASTING 260 MG/DL (70-100); MAGNESIUM LEVEL 1.9 MG/DL (1.8-2.4); POTASSIUM SERUM 3.5 MEQ/L (3.5-5.1); SODIUM LEVEL 139 MEQ/L (136-145)
[2017-08-27] MEDS: LEVOTHYROXINE 25MCG TABLET (0.025MG) PO (06:07)
[2017-08-27] MEDS: TIOTROPIUM INHALER/CAPSULE (SPIRIVA) INH (08:10)
[2017-08-27] MEDS: PREGABALIN 75 MG CAP(LYRICA) PO (08:31)
[2017-08-27] MEDS: ASPIRIN 325 MG TAB PO (08:31)
[2017-08-27] MEDS: CLOPIDOGREL 75 MG TAB PO (08:32)
[2017-08-27] MEDS: PANTOPRAZOLE 40MG TAB (PROTONIX) PO (08:32)
[2017-08-27] MEDS: FLUTICASONE PROP 0.05% NASAL SPRAY 16 GM (FLONASE) (08:32)
[2017-08-27] MEDS: SUCRALFATE 1 GM TAB PO (08:32)
[2017-08-27] MEDS: SERTRALINE 100 MG TAB PO (08:32)
[2017-08-27] MEDS: CYANOCOBALAMIN 500 MCG TAB PO (08:32)
[2017-08-27] MEDS: METAXALONE 800 MG TABLET PO (08:32)
[2017-08-27] MEDS: PARoxetine 25 MG CR TAB (PAXIL CR) PO (08:32)
[2017-08-27] MEDS: ENOXAPARIN 40 MG/0.4 ML SYRINGE (J1650) SC (08:33)
[2017-08-27] MEDS: HumaLOG INSULIN (NovoLOG) PER UNIT SC (08:34)
== END 2017-08-27 09:17 | disposition short-term general hospital (02) | DRG 198 ==
LOC: M PCU 08-26 03:18 → M ED 17:42 → M ED INP 22:04
DX: I25.10 Atherosclerotic heart disease of native coronary artery without angina pectoris (principal); E11.621 Type 2 diabetes mellitus with foot ulcer; J44.9 Chronic obstructive pulmonary disease, unspecified; E53.8 Deficiency of other specified B group vitamins; K21.9 Gastro-esophageal reflux disease without esophagitis; E78.5 Hyperlipidemia, unspecified; E03.9 Hypothyroidism, unspecified; R07.89 Other chest pain; R74.8 Abnormal levels of other serum enzymes; Z79.899 Other long term (current) drug therapy; Z95.2 Presence of prosthetic heart valve; Z79.4 Long term (current) use of insulin; I10 Essential (primary) hypertension; F17.200 Nicotine dependence, unspecified, uncomplicated; M54.5 Low back pain; F32.9 Major depressive disorder, single episode, unspecified; Z79.82 Long term (current) use of aspirin; G40.909 Epilepsy, unspecified, not intractable, without status epilepticus